=== PATIENT | female | born 1985 | race African-American/Black ===

== ENCOUNTER 2018-08-30 06:08 | Observation (INO) ==
--- NOTE | 2018-08-23 13:05 | Anesthesiology Consultation ---
Date of Service August 23, 2018 Assessment & Plan (1) Encounter for pre-operative examination: Plan: - Check test AM DOS Chart Review Chart Review: Acceptable Risk for Surgery and Patient seen in Pre Admission Testing Teaching & Discussion Pre-Anesthesia Teaching/Discussion Notes: Instructed NPO after midnight before surgery,except medications with 15 cc of water. Medication instructions provided according to the PAT guidelines. History Surgery Operation Date: 08/30/18 10:50 Proposed Procedures p Bilateral Reduction Mammoplasty - Kennedi Willis MD Height/Weight Height: 5 ft 3 in Weight: 67.2 kg Allergies Allergy/AdvReac Type Severity Reaction Status Date / Time iodine Allergy Anaphylaxis Verified 08/21/18 14:59 Medications Home Medications Medication Instructions Recorded Confirmed Last Taken acetaminophen 500 mg PO Q6H PRN 08/21/18 08/21/18 Unknown ibuprofen 200 mg PO QID PRN 08/21/18 08/21/18 Unknown Past Medical History Medical History History of kidney stones Patient denies significant medical history Past Family History Family History Grandfather (Maternal) Family history of diabetes mellitus Sister Family history of diabetes mellitus Past Surgical History Surgical History Hx of section X2 Hx of cystoscopy + STENT PLACEMENT/SUBSEQUENT REMOVAL Past Anesthesia History No Family Hx of Anesthesia Complications and Other "Awareness" x1 with cysto/stent removal. History of PONV Yes (SIGNIFICANT IMPROVEMENT WITH SCOPE PATCH USE PREVIOUSLY) Motion Sickness Screening History of Motion Sickness: No Social History Smoking Status: Never smoker Do You Dip or Chew Tobacco: No Hx Alcohol Use: No Hx Substance Use: No Exercise / Class Metabolic Activity II 4-5 Yardwork/Stairs/Walk up hill Review of Systems Rare reflux. Patient denies chest pain, shortness of breath, dyspnea on exertion , cough, wheezing, palpitations. Physical Exam Vital Signs VITALS BP 107/72 P 75 TEMP 98.3 SP02 98%RA RESP 16 PHYSICAL Full neck and c-spine range of motion. Full TMJ range of motion. TMD 3.5 finger breaths Mallampati Score 1 Dentition: intact Lungs: clear throughout to auscultation Cardiac: regular rate and rhythm, no murmurs noted Spine: normal Carotid arteries: negative bruit Extremities: no edema Testing Laboratory Results 08/23/18 13:32 08/23/18 13:32 PT 10.7 Seconds (9.0-12.0) 08/23/18 13:32 INR 1.0 (0.9-1.1) 08/23/18 13:32 APTT 26.2 Seconds (21.0-31.0) 08/23/18 13:32
--- NOTE | 2018-08-23 13:06 | PAT Medication Instructions ---
Medication Instructions Date of Service August 23, 2018 Home Medications acetaminophen 500 mg PO Q6H PRN ibuprofen 200 mg PO QID PRN ASK your surgeon for instructions ibuprofen 200 mg PO QID PRN Take morning of surgery With a small sip of water, OTHERWISE NOTHING TO EAT OR DRINK AFTER MIDNIGHT: acetaminophen 500 mg PO Q6H PRN (okay to take up to 4 hours prior to surgery if needed) Take evening before surgery acetaminophen 500 mg PO Q6H PRN (if needed) Other Notes If you have any questions please call us at [phone] or [phone] or [phone] or [phone]
[2018-08-23 14:15] LABS: Basophils # (auto) 0.03 K/uL (0-0.2); Basophils % (auto) 0.4 %; Eosinophils # (auto) 0.03 K/uL (0-0.5); Eosinophils % (auto) 0.4 %; Hemoglobin 11.9 g/dL (12.0-16.0); Immature Granulocytes # (auto) 0.02 K/uL (0.00-0.02); Immature Granulocytes % (auto) 0.3 %; Lymphocytes # (auto) 1.89 K/uL (1.2-3.4); Lymphocytes % (auto) 27.8 %; Mean Corpuscular Hgb Conc 32.2 g/dL (32-36); Mean Corpuscular Volume 79.7 fL (80-100); Mean Platelet Volume 11.1 fL (7.4-10.4); Monocytes # (auto) 0.42 K/uL (0.11-0.59); Monocytes % (auto) 6.2 %; Neutrophils # (auto) 4.41 K/uL (1.4-6.5); Neutrophils % (auto) 64.9 %; Platelet Count 256 K/uL (130-400); RDW Coefficient of Variation 15.8 % (11.5-14.5); RDW Standard Deviation 45.9 fL (36.4-46.3); Red Blood Count 4.64 M/uL (4.2-5.4)
[2018-08-23 14:30] LABS: BUN Creatinine Ratio 14.6 (10-20); Creatinine Clr Calc Pharmacy 80.8 ml/min; Est GFR (African American) 95.5; Est GFR (Non-African American) 82.4; Potassium 3.6 mmol/L (3.5-5.1)
[2018-08-23 14:33] LABS: Partial Thromboplastin Time 26.2 Seconds (21.0-31.0); Prothrombin Time 10.7 Seconds (9.0-12.0)
[~2018-08-30 06:08] MED LIST: CEFAZOLIN 2000MG 2,000 MG/15 ML SYR IV SCH; LR 15ML/HR IV SCH; SCOPOLAMINE 1.5 MG TDSY TD SCH
[2018-08-30] MEDS ORDERED: PROPOFOL IV EMULSION 10 MG/ML 20 ML VIAL IV ONE (06:28)
[2018-08-30] MEDS ORDERED: MIDAZOLAM HCL 1 MG/ML 2ML VIAL ONE (06:28)
[2018-08-30] MEDS ORDERED: LIDOCAINE HCL 2% 2 ML VIAL/AMP(20MG/ML) INFIL ONE (06:28)
[2018-08-30] MEDS ORDERED: fentaNYL citrate 100 MCG/2 ML VIAL ONE ×2 (06:28→12:05)
[2018-08-30] MEDS ORDERED: ONDANSETRON INJ 2 MG/ML 2 ML VIAL ONE (06:28)
[2018-08-30] MEDS ORDERED: ROCURONIUM BROMIDE 10 MG/ML 5 ML VIAL ONE (06:28)
[2018-08-30] MEDS ORDERED: ePHEDrine sulfate 50 MG/ML AMP IV PRN (07:02)
[2018-08-30] MEDS ORDERED: ONDANSETRON INJ 2 MG/ML 2 ML VIAL IV PRN ×2 (07:02→12:51)
[2018-08-30] MEDS ORDERED: ATROPINE SULFATE 0.1 MG/ML 10ML SYR IV PRN (07:02)
--- NOTE | 2018-08-30 07:07 | History & Physical Bridge Note ---
Date of Service August 30, 2018 History & Physical Bridge Note I have examined the patient, reviewed the History & Physical and in the interval since the performance of the History & Physical I have noted the following changes of clinical significance: no changes noted
[2018-08-30] MEDS ORDERED: LIDOCAINE/EPINEPHRINE 1% 20 ML VIAL ONE (07:14)
[2018-08-30] MEDS ORDERED: BUPIVACAINE 0.25% 30 ML VIAL ONE (07:14)
[2018-08-30] MEDS ORDERED: HYDROmorphone INJ 2 MG/ML SYR/VIAL ONE (07:49)
[2018-08-30] MEDS ORDERED: ESMOLOL HCL INJ 10 MG/ML 10ML VIAL IV ONE ×2 (08:27→13:59)
[2018-08-30] MEDS ORDERED: NEOSTIGMINE METHYLSULFATE 5 MG/5 ML SYR ONE (10:40)
[2018-08-30] MEDS ORDERED: GLYCOPYRROLATE 0.2 MG/ML VIAL ONE (10:40)
--- NOTE | 2018-08-30 11:09 | Post Operative Brief Note ---
Immediate Post Op Note v1 Date of Surgery August 30, 2018 Pre & Post Diagnosis Operation Date: 08/30/18 07:30 Pre-Op Diagnosis: Symptomatic Bilateral Macromastia Post-Op Diagnosis: Symptomatic Bilateral Macromastia Procedure Operation Date: 08/30/18 07:30 Actual Procedures p Bilateral Breast Reduction(Bilateral) - Kennedi Willis MD Surgeon Kennedi Willis MD Supply Chain Project Manager Nathalia Sanchez PA-C Estimated Blood Loss 25 Findings Consistent with Post-Op Diagnosis Drains Toy-Talavera Drain (x2)
[2018-08-30] MEDS ORDERED: METOCLOPRAMIDE HCL INJ 5 MG/ML 2 ML VIAL IV ONE (11:56)
[2018-08-30] MEDS ORDERED: METOCLOPRAMIDE HCL INJ 5 MG/ML 2 ML VIAL ONE (11:58)
[2018-08-30] MEDS: fentaNYL citrate 100 MCG/2 ML VIAL IV PRN ×2 (12:06→12:12)
--- NOTE | 2018-08-30 12:34 | Anesthesiology Progress Note ---
Date of Service August 30, 2018 Anesthesia Post Procedure Vital Signs Vital Signs: Temp Pulse Pulse Resp BP BP Pulse Ox 08/30/18 12:30 76 20 127/73 98 08/30/18 12:20 97.0 F L 59 L 15 117/76 98 08/30/18 12:10 59 L 12 109/76 99 08/30/18 12:00 57 L 17 109/76 99 08/30/18 11:50 61 17 122/81 95 08/30/18 11:40 62 14 120/78 99 08/30/18 11:30 63 14 121/82 99 08/30/18 11:20 65 17 127/96 96 08/30/18 11:12 97.2 F L 65 15 128/92 98 08/30/18 06:40 98.2 F 80 16 118/87 97 Pain Intensity Bilateral Breast: Pain Intensity: 3 Notes Mental Status: alert / awake / arousable and participated in evaluation Patient Amnestic to Procedure: Yes Nausea / Vomiting: adequately controlled Pain: adequately controlled Airway Patency, RR, SpO2: stable & adequate BP & HR: stable & adequate Hydration State: stable & adequate Anesthetic Complications: no major complications apparent and Pt Satisfied with anesthetic care
[2018-08-30] MEDS ORDERED: ACETAMINOPHEN 500 MG TAB PO PRN (12:51)
[2018-08-30] MEDS ORDERED: IBUPROFEN 200 MG TAB PO PRN (12:51)
[2018-08-30] MEDS ORDERED: OXYCODONE/ACETAMINOPHEN 5mg/325mg TAB PO PRN ×2 (12:51)
[2018-08-30] MEDS ORDERED: PROMETHAZINE HCL 12.5 MG in SODIUM CHLORIDE 0.9% 50 ML IV PRN (12:51)
[2018-08-30] MEDS ORDERED: MoRPHine SULFATE 4 MG/ML 1 ML CARP\\VIAL IV PRN ×3 (12:51)
[2018-08-30] MEDS ORDERED: OXAZEPAM 10 MG CAPSULE PO PRN (12:51)
[2018-08-30] MEDS ORDERED: DiphenhydrAMINE HCL 50 MG/ML VIAL IV PRN (12:51)
[2018-08-30] MEDS ORDERED: ACETAMINOPHEN 325 MG TAB PO PRN (12:51)
[2018-08-30] MEDS: D5W AND 1/2NSS + 20MEQ KCL 20 MEQ/1,000 ML BAG IV SCH (14:15)
--- NOTE | 2018-08-30 15:19 | Operative Report ---
Post Operative Report Pre & Post Diagnosis Operation Date: 08/30/18 07:30 Pre-Op Diagnosis: Symptomatic Bilateral Macromastia Post-Op Diagnosis: Symptomatic Bilateral Macromastia Procedure Operation Date: 08/30/18 07:30 Actual Procedures p Bilateral Breast Reduction(Bilateral) - Kennedi Willis MD Surgeon Kennedi Willis MD Silk Screen Etcher Nathalia Sanchez PA-C Estimated Blood Loss 25 Findings Consistent with Post-Op Diagnosis Bilateral NACs viable postop Specimens left breast 582 g, right breast 592 g Drains CHAVEZ x2 Anesthesia Type General Complications none Indications back, neck and shoulder pain due to macromastia Description of Procedure The risks, benefits, and alternatives of the procedure were explained to the patient who agreed and signed consent. She was identified and marked in the preoperative holding area. She was brought to the operating room where she was positioned supine and placed under general anesthesia without incident. Surgical site was prepped and draped sterilely. A time-out procedure was performed. I began with the left side. Markings were reassessed and a 7 cm pedicle was marked. 1% lidocaine with epinephrine was used to anesthetize the planned incisions. A 42 mm cookie cutter was used to circumscribe the nipple-areolar complex. The previously marked 7 cm pedicle was incised using a 15 blade scalpel and deepithelized. I began with the medial dissection of the pedicle using electrocautery. Cautery was used to incise through dermis and breast parenchyma down to the chest wall, taking care not to undermine the pedicle during dissection. A similar procedure was undertaken on the lateral aspect of the pedicle again taking care not to undermine. Lastly, the pedicle was dissected out superiorly using electrocautery and this was carried down to the chest wall as well. I then began with excision of the medial breast tissue followed by lateral aspect of the breast tissue and surrounding keyhole incision. A 15 blade scalpel was used to make the inframammary fold incision and electrocautery was used to deepen the incision through dermis and breast parenchyma. Dissection was then carried superiorly to the level of the superior incision. Superior incision was then incised using a 15 blade scalpel and again dissected using electrocautery. This was undertaken laterally and then around the keyhole portion of the incision. Care was taken to leave some fat on the lateral pectoralis fascia in order to protect the T4 intercostal nerve. Hemostasis was achieved with electrocautery. The specimen was passed off in its entirety for weighing. Additional resection was undertaken from the superior flap in order to facilitate closure of the breast and to provide the best shape. The total resection weight of the left b reast was 582 grams. The wound was irrigated with saline and hemostasis was achieved with electrocautery. 0.25% Marcaine plain was used to anesthetize the incisions as well as the pectoralis fascia. A 15 [place] Champ drain was brought out through a separate stab incision. The nipple-areolar complex was brought into the keyhole using 2-0 Vicryl deep dermal suture. The wound was closed first in a lateral to mid breast direction and then medial to mid breast direction using 2-0 Vicryl deep dermal sutures. Vertical limb was also approximated using 2-0 Vicryl deep dermals and the nipple-areolar complex was inset using 2-0 Vicryl deep dermal sutures. Next, the superficial dermal layer was closed using 2-0 PDO running Quill suture along the inframammary fold and 3-0 PDS interrupted dermal sutures along the vertical limb and nipple-areolar complex. Lastly 3-0 Monocryl running subcuticular suture was placed. A similar procedure was undertaken on the right side with maximal excision weight of 592 grams. Breasts were reasonably symmetric and nipple- areolar complexes were viable bilaterally following wound closure. Dermabond Prineo was applied along the inframammary fold and vertical limb and Dermabond was placed around the nipple-areolar complex. Dry dressings and a surgical bra were placed. The patient was awakened and transferred to recovery room in satisfactory condition. Nathalia Sanchez PA-C was present and scrubbed throughout the procedure and was instrumental in providing retraction during dissection of the pedicle and assisting in wound closure. I attest to the content of the Intraoperative Record and any orders documented therein. Any exceptions are noted below.
[2018-08-30] MEDS: CEFAZOLIN 2000MG 2,000 MG/15 ML SYR IV SCH (16:22)
[2018-08-30] MEDS: CHECK SCOPOLAMINE PATCH PLACEMENT SCH (16:22)
[2018-08-30] MEDS ORDERED: Nursing to Pharmacy Communication ONE (21:30)
[2018-08-31] MEDS: CEFAZOLIN 2000MG 2,000 MG/15 ML SYR IV SCH
[2018-08-31] MEDS: CHECK SCOPOLAMINE PATCH PLACEMENT SCH
[2018-08-31] MEDS: D5W AND 1/2NSS + 20MEQ KCL 20 MEQ/1,000 ML BAG IV SCH (02:58)
[2018-08-31] MEDS ORDERED: MULTIVITAMIN TAB PO SCH (09:00)
--- NOTE | 2018-08-31 09:03 | Surgery Progress Note ---
Date of Service August 31, 2018 Assessment & Plan (1) Breast hypertrophy: s/p bilateral breast reduction 1. drains removed 2. d/c home today with f/u in office tomorrow Present on Admission?: Yes Subjective patient resting comfortably Physical Exam Vital Signs (Past 24 Hours): Last Vital Signs Temp 37.1 C 08/31/18 08:21 Pulse 90 08/31/18 08:21 Resp 16 08/31/18 08:21 BP 113/74 08/31/18 08:21 Pulse Ox 98 08/31/18 08:21 Constitutional: WD/WN, vitals as above no acute distress Skin: + incision (CDI, nipples with sensation bilaterally, no evidence of infection)
--- NOTE | 2018-08-31 13:29 | Anesthesiology Progress Note ---
Date of Service August 31, 2018 Anesthesia Post Procedure Vital Signs Vital Signs: Temp Pulse Pulse Pulse Resp BP Pulse Ox 08/31/18 11:32 37.0 C 76 82 97 H 18 115/77 99 08/31/18 11:10 37.0 C 97 H 18 115/77 99 08/31/18 08:21 37.1 C 90 16 113/74 98 08/31/18 02:12 37.4 C 82 14 128/78 97 08/30/18 22:55 37.0 C 69 14 115/77 91 08/30/18 19:16 37 C 69 16 134/78 91 08/30/18 14:42 36.2 C L 67 18 104/68 100 08/30/18 13:33 36.4 C L 71 15 122/85 98 Pain Intensity Bilateral Breast: Pain Intensity: 2 Notes Mental Status: alert / awake / arousable and participated in evaluation Patient Amnestic to Procedure: Yes Nausea / Vomiting: adequately controlled Pain: adequately controlled Airway Patency, RR, SpO2: stable & adequate BP & HR: stable & adequate Hydration State: stable & adequate Anesthetic Complications: no major complications apparent and Pt Satisfied with anesthetic care
--- NOTE | 2018-09-01 09:34 | Discharge Summary ---
Date of Service September 01, 2018 Admission HPI Per Admitting Provider see admission H&P Admission Exam Per Admitting Provider see admission H&P Principal Diagnosis symptomatic macromastia Discharge Exam Constitutional WD/WN, vitals as above no acute distress Skin + incision (CDI, nipples with sensation bilaterally, no evidence of infection) Discharge Data Allergies Allergy/AdvReac Type Severity Reaction Status Date / Time iodine Allergy Severe Anaphylaxis Verified 08/30/18 06:38 Procedures Performed Operation Date: 08/30/18 07:30 Actual Procedures p Bilateral Breast Reduction(Bilateral) - Kennedi Willis MD Hospital Course (1) Breast hypertrophy: Patient presented to [facility] with history of macromastia. She was taken to the OR and underwent bilateral breast reduction. There were no intraoperative complications. She was taken to recovery and transferred to med/surg. On POD#1, her drains were removed. On exam, her nipples were viable and incisions CDI. Patient was discharged home. Total Time Total Time Spent Total Time Spent (In Minutes): 10 Total Time Includes: Examination of the Patient, Discharge Planning and Medication Reconciliation Discharge Plan Discharge Items Patient Disposition: Home - Self-Care Reason For Visit: Symptomatic Macromastia Discharge Diagnosis: s/p bilateral breast reduction Discharge Goals: Decrease discomfort and Improve function Activity: As commented below Non-emergency contact: Surgeon Call non-emergency contact if: your pain is not controlled, you have a fever and your wound has increased redness Follow-up/Referrals: Dionne Iverson [Primary Care Provider] - Diet: Regular Addtl Provider Instructions: ACTIVITY RECOMMENDATIONS: __Normal activities _x_No bending, lifting or straining __No driving _x_Driving allowed when you are off pain medications and you feel safe to drive _x_Walking permitted __You should have help at home for ___ days DRESSINGS: __No dressings required _x_Keep dressings dry/in place until first office visit __Remove dressings ___ and leave dressings off __Apply ice ___ days __Remove dressings and reapply garment __Apply antibiotic ointment (Bacitracin, Neosporin, etc) to wounds 3-4 times/day for 10 days BATHING: _x_Keep dressings dry _x_Sponge bathing permitted __Showering permitted _x_No swimming, hot tubs or soaking in a tub MEDICATIONS: Resume previous medications unless instructed otherwise by your surgeon. _x_Do not use aspirin, Motrin, Advil or Ibuprofen as these may promote bleeding. Please use Tylenol. _x_Prescription(s) provided: pain medication was provided at your last office visit OTHER INSTRUCTIONS: __Record drain output 2-3 times per day SPECIAL CARE INSTRUCTIONS: * It is normal to have a mild fever after surgery. If your temperature is higher than 101.5 degrees F, please call the office at [phone]. * Constipation is a typical side effect of pain medication. An [id number] stool softener will help relieve this. * Leaking around surgical drains may occur and should not cause concern. Sometimes these drains become clogged. If this happens, remove the bulb and milk the clot out of the tube, then replace the bulb. * Drainage from wounds after liposuction is normal and should be expected. Garments will become soiled. You should protect furniture and bedding. This drainage should mostly subside within 2-3 days. Leave garments in place unless instructed to remove them. * If you have unusual drainage from a wound or are concerned you have an infection or have any questions or concerns, please call the office at [phone]. FOLLOW UP VISIT: If not already scheduled, please call the office, , when you return home after surgery to schedule an appointment to be seen in __1_ days. Prescriptions: Continued acetaminophen 500 mg Tablet 500 mg PO Q6H PRN (Reason: Pain) RF: 0 Discontinued ibuprofen 200 mg Tablet 200 mg PO QID PRN (Reason: Pain) RF: 0 Stand-Alone Forms: [facility] Discharge Orders: Discharge Order (Routine); Ordered 08/31/18 Ordered By: Nathalia Sanchez Admission Data Admit Date/Time: 08/30/18 13:17 Attending Provider: Kennedi Willis Admit Provider: Kennedi Willis Primary Care Provider: Dionne Iverson Service: Surgical Services Other Interventions: Discharge Summary Assessment (RN) Last Done: 08/31/18 11:32 Pending Studies at Discharge: Yes Studies:: pathology DC Date/Time DO NOT enter until pt leaves facility: 08/31/18 13:52
== END 2018-08-31 13:52 | disposition home or self-care (01) | DRG 585 ==
LOC: 3N 06:08 → ASU 06:08 → OBSVTOIN 13:17 → INTOOBSV 13:17